=== PATIENT | male | born 2000 | race Two or more races ===

== ENCOUNTER 2024-12-15 02:08 | Emergency (ER) | payer MEDICAID, SELFPAY ==
[2024-12-15 02:16] VITALS: BP 125/78; PULSE 147; RESP 19; TEMP 36.9; O2SAT 95; BMI 29.4
[2024-12-15 02:34] VITALS: BP 144/89; PULSE 117; RESP 24; O2SAT 94
--- NOTE | 2024-12-15 02:39 | PD.EDMEDCL ---
ED Medical Clearance RME/HPI General Chief complaint: Medical Clearance Stated complaint: MEDICAL CLEARANCE Time Seen by Provider: 12/15/24 02:38 Arrival date/time: 12/15/24 02:08 Limitations: no limitations RME / HPI RME / HPI Narrative: 24-year-old brought in by police for medical clearance. The patient reports that he was drinking alcohol today. Denies chest pain, shortness of breath, or any extremity pain. Place: street Compliant with Home Medications: No Traumatic Symptoms: denies traumatic injury Associated Symptoms: denies other symptoms Treatments Prior to Arrival: none Related Information Home Medications ?Medication ?Instructions ?Recorded ?Confirmed No Known Home Medications 11/28/18 11/28/18 Previous Rx's ?Medication ?Instructions ?Recorded acetaminophen 300 mg-codeine 30 mg 1 tab PO TID PRN pain #12 tabs 01/04/20 tablet (Tylenol-Codeine #3) ibuprofen 600 mg tablet 600 mg PO Q6H #30 tabs 01/04/20 Allergies Allergy/AdvReac Type Severity Reaction Status Date / Time No Known Allergies Allergy Verified 12/15/24 02:18 ED Exam Narrative Physical exam: Patient talking loudly, no acute distress General Limitations: Present no limitations General appearance: Present alert Head Head exam: Present atraumatic Eye Eye exam: Present normal appearance ENT ENT exam: Present normal exam and mucous membranes moist Neck Neck exam: Present normal inspection and full ROM Chest Chest inspection: Present normal inspection and symmetric chest wall rise Respiratory Respiratory exam: Present other Cardiovascular Cardiovascular exam: Present regular rate, normal rhythm and normal heart sounds Abdominal Exam Abdominal exam: Absent distention Extremities Exam Extremities exam: Present normal inspection and full ROM Back Exam Back exam: Present normal inspection and full ROM Neurological Exam Neurological exam: Present alert, oriented X3 and CN II-XII intact Psychiatric Psychiatric exam: Present normal affect and normal mood Skin Skin exam: Present warm, dry, intact and normal color Course Course Course Narrative: Patient placed in room 6 and repeat heart rate is taken and is 125. Quality Measures none Reevaluation(s) Reevaluation #1: Repeat heart rate 125. Vital Signs Vital signs: Vital Signs Temperature 98.4 F 12/15/24 02:16 Pulse Rate 147 H 12/15/24 02:16 Respiratory Rate 19 12/15/24 02:16 Blood Pressure 125/78 12/15/24 02:16 Pulse Oximetry (%) 95 12/15/24 02:16 Oxygen Delivery Method Room Air 12/15/24 02:16 Medical Clearance Patient data External records reviewed:: [facility] previous records (Ankle sprain seen in 2019) Clinical information provided by:: patient and EMS Social determinants that could affect healthcare access:: alcohol use Patient has the following chronic illnesses:: Patient states hypertension but does not take medications. How is presenting disease/condition affected by chronic disease/condition?: no chronic disease Evaluation data The following diagnostics were reviewed and interpreted by me:: other (specify) (None) Lab and/or radiology exams considered but not ordered:: None Interpretation Summary: N/A Medications / Prescriptions Medications or Prescriptions considered but not ordered:: N/A Medication administrations:: N/A Consultations Consultation(s) initiated? (list below): No Consultation #1 (Physician, Specialty, Details): N/A Diagnosis Medical Clearance Differential Diagnosis: other (Drug use, alcohol abuse) Most likely diagnosis given after review of the tests above:: Medical clearance for skilled nursing. Admission Indicated Admission indicated?: not indicated Admission Request Was there a request for admission?: No Disposition Plan Disposition Plan: Discharge Discharge Attestation Discharge Attestation: The patient and all family members were given an opportunity to ask questions and understood the discharge instructions. Discharge instructions specifically effects, indications for sooner follow up or return to the emergency department, and the expected course of current diagnosis. Patient condition: Stable Discharge Plan Plan Patient Disposition: [facility]sp/Court/Law Patient condition on transfer: Stable Prescriptions/Referrals Prescriptions/Med Rec: No Action acetaminophen-codeine [Tylenol-Codeine #3] 300-30 mg tablet 1 tab PO TID PRN (Reason: pain) Qty: 12 0RF ibuprofen 600 mg tablet 600 mg PO Q6H Qty: 30 0RF No Known Home Medications Problem List Clinical Impression: Medical clearance for incarceration Patient/Caregiver Discharge Instructions Additional Instructions: Return to the emergency department for any worsening symptoms, or any other concerns. Follow-up with your primary care as needed so you can get a refill on your medications since you do not know what they are. Print Language: [place]
== END 2024-12-15 02:43 ==
LOC: SERX 04:30
PROVIDERS: Emergency Provider Emergency Medicine
DX: Z02.89 Encounter for other administrative examinations (principal)
CPT/HCPCS: 99281